=== PATIENT | male | born 1980 | race Caucasian/White ===

== ENCOUNTER 2022-05-19 18:22 | Emergency (ER) | payer SELFPAY ==
[~2022-05-19] VITALS: Ht 180.3 cm; Wt 186.4 kg
[2022-05-19 18:43] LABS: BASOPHILS # (AUTO) 0.1 X10'3 (0-0.2); BASOPHILS % (AUTO) 0.9 % (0-1); EOSINOPHILS # (AUTO) 0.6 X10'3 (0-0.9); EOSINOPHILS % (AUTO) 3.8 % (0-6); HEMATOCRIT 48.7 % (42.0-52.0); HEMOGLOBIN 15.9 g/dl (14.0-17.9); LYMPHOCYTES # (AUTO) 2.6 X10'3 (1.1-4.8); LYMPHOCYTES % (AUTO) 16.7 % (21-51); MEAN CORPUSCULAR HEMOGLOBIN 30.6 PG (27.0-31.0); MEAN CORPUSCULAR HGB CONC 32.7 g/dL (33.0-36.5); MEAN CORPUSCULAR VOLUME 93.7 FL (78-98); MEAN PLATELET VOLUME 8.3 FL (7.4-10.4); MONOCYTES % (AUTO) 6.2 % (2-12); NEUTROPHILS # (AUTO) 11.3 X10'3 (1.8-7.7); NEUTROPHILS % (AUTO) 72.4 % (42-75); PLATELET COUNT 283 X10'3 (140-440); RED BLOOD COUNT 5.19 X10'6 (4.70-6.10); RED CELL DISTRIBUTION WIDTH 13.9 % (11.5-14.5); WHITE BLOOD COUNT 15.6 X10'3 (4.5-11.0)
[2022-05-19 18:53] LABS: ALANINE AMINOTRANSFERASE 60 U/L (12-78); ALBUMIN 3.9 G/DL (3.4-5.0); ALKALINE PHOSPHATASE 88 IU/L (46-116); ANION GAP 7 (8-16); ASPARTATE AMINO TRANSFERASE 117 U/L (10-37); BILIRUBIN,TOTAL 0.4 MG/DL (0.1-1.0); BLOOD UREA NITROGEN 11 MG/DL (7-18); BUN/CREATININE RATIO 10.6 (5.4-32.0); CALCIUM 8.8 MG/DL (8.5-10.1); CHLORIDE 101 MMOL/L (99-107); CREATININE 1.04 MG/DL (0.60-1.10); GLUCOSE 155 MG/DL (70-104); SODIUM 135 MMOL/L (135-145); TOTAL CARBON DIOXIDE 27.1 MMOL/L (24-32); eGFR 78 ML/MIN
[2022-05-19 19:00] LABS: MAGNESIUM 2.1 MG/DL (1.5-2.4)
[2022-05-19 20:25] LABS: CLARITY,URINE CLEAR (Clear); COLOR,URINE YELLOW (Yellow); GLUCOSE, URINE NEGATIVE (Neg); KETONES,URINE NEGATIVE (Neg); LEUKOCYTE ESTERASE ,URINE NEGATIVE (Neg); NITRITES, URINE NEGATIVE (Neg); OCCULT BLOOD,URINE TRACE-INTACT (Neg); PROTEIN,URINE NEGATIVE (Neg); UROBILINOGEN,URINE 0.2 E.U/dL (0.2-1.0)
[2022-05-19 20:26] LABS: UA COLLECTION TYPE CLN CATCH MIDSTREAM
[2022-05-19 20:42] LABS: BACTERIA,URINE NONE SEEN /HPF (Neg); RBC,URINE 0-2 /HPF (0-2); SQUAMOUS EPITHELIAL CELL,UR FEW /LPF (FEW); WBC,URINE NONE SEEN /HPF (0-4)
[2022-05-19 20:43] LABS: MUCUS STRANDS NONE SEEN /LPF (Neg)
[2022-05-19] MEDS ORDERED: normal saline 1000ML IV soln IVB ONE (22:55)
[2022-05-19] MEDS ORDERED: ibuprofen tablet 400 MG TABLET PO ONE (23:00)
--- NOTE | 2022-05-19 23:21 | NUR ---
Pt stated his last ETOH drink was approx 1600 in the afternoon. He states he drank approx. 3 oz of vodka. Pt denies tremors, diaphoresis, N/V, hallucinations.
[2022-05-20 00:13] VITALS: BP 120/78
== END 2022-05-20 00:15 | disposition home or self-care (01) ==
LOC: ER 18:25
DX: F10.920 Alcohol use, unspecified with intoxication, uncomplicated (principal); G89.29 Other chronic pain; M54.9 Dorsalgia, unspecified; E03.9 Hypothyroidism, unspecified
CPT/HCPCS: 36415; 71045; 80053; 81001; 83735; 83880; 84484; 85025; 93005; 96360; 99285; J7030

== ENCOUNTER 2023-04-30 08:17 | Inpatient (IN) | payer BC, MEDICAID ==
[~2023-04-30] VITALS: Ht 180.3 cm; Wt 172.1 kg
[2023-04-30] MEDS ORDERED: Potassium Cl inj 20 MEQ, magnesium sulf injection 2 GM, folic acid inj. 1 MG, thiamine ... IV ONE ×6 (08:55)
[2023-04-30] MEDS ORDERED: normal saline 1000ML IV soln IVB ONE ×2 (08:55→11:20)
[2023-04-30] MEDS ORDERED: pantoprazole 40 MG vial IV ONE (08:55)
[2023-04-30] MEDS ORDERED: ondansetron/PF 4mg/2ml inj IV ONE (08:55)
[2023-04-30 09:05] LABS: BASOPHILS # (AUTO) 0.2 X10'3 (0-0.2); BASOPHILS % (AUTO) 1.3 % (0-1); EOSINOPHILS # (AUTO) 0.1 X10'3 (0-0.9); EOSINOPHILS % (AUTO) 0.6 % (0-6); HEMATOCRIT 49.5 % (42.0-52.0); HEMOGLOBIN 16.8 g/dl (14.0-17.9); LYMPHOCYTES # (AUTO) 3.8 X10'3 (1.1-4.8); LYMPHOCYTES % (AUTO) 31.7 % (21-51); MEAN CORPUSCULAR HEMOGLOBIN 32.6 PG (27.0-31.0); MEAN PLATELET VOLUME 8.4 FL (7.4-10.4); MONOCYTES # (AUTO) 1.1 X10'3 (0-0.9); MONOCYTES % (AUTO) 8.7 % (2-12); NEUTROPHILS % (AUTO) 57.7 % (42-75); PLATELET COUNT 339 X10'3 (140-440); RED BLOOD COUNT 5.15 X10'6 (4.70-6.10); RED CELL DISTRIBUTION WIDTH 14.3 % (11.5-14.5); WHITE BLOOD COUNT 12.1 X10'3 (4.5-11.0)
[2023-04-30 09:12] LABS: ALANINE AMINOTRANSFERASE 43 U/L (12-78); ALKALINE PHOSPHATASE 97 IU/L (46-116); ANION GAP 13 (8-16); ASPARTATE AMINO TRANSFERASE 86 U/L (10-37); BILIRUBIN,TOTAL 0.5 MG/DL (0.1-1.0); BLOOD UREA NITROGEN 8 MG/DL (7-18); BUN/CREATININE RATIO 6.2 (10.0-20.0); CALCIUM 8.5 MG/DL (8.5-10.1); CHLORIDE 102 MMOL/L (99-107); GLUCOSE 177 MG/DL (70-104); POTASSIUM 3.1 MMOL/L (3.5-5.1); SODIUM 140 MMOL/L (135-145); eCRCL 77 ML/MIN; eGFR 60 ML/MIN
[2023-04-30 09:13] LABS: LIPASE 49 U/L (16-77)
[2023-04-30 09:30] LABS: ETHANOL 382 MG/DL (<10)
[2023-04-30] MEDS ORDERED: magnesium 2GM in 50ml NS 50 ML IV ONE (09:30)
[2023-04-30] MEDS ORDERED: thiamine inj. 100 MG in normal saline 100ml IV soln 99 ML IV ONE (10:00)
[2023-04-30] MEDS ORDERED: folic acid 1mg/0.2ml inj IV ONE (10:00)
[2023-04-30] MEDS ORDERED: MVI, adult No.4 with vit. K 10 ML in dextrose 5% water 500ml 500 ML IV ONE ×2 (10:00)
[2023-04-30] MEDS ORDERED: potassium CL 10mEq/100ml bag 100 ML IV SCH (10:10)
[2023-04-30] MEDS ORDERED: potassium Cl 20 mEq SR tablet PO ONE (10:10)
[2023-04-30] MEDS: potassium CL 10mEq/100ml bag 100 ML IV SCH ×2 (10:22→11:52)
[2023-04-30] MEDS ORDERED: thiamine 100mg/ml 2ml inj. IV ONE (11:35)
[2023-04-30] MEDS ORDERED: acetaminophen 325mg tablet PO PRN (12:50)
[2023-04-30] MEDS ORDERED: magnesium hydroxide 30ml (MOM) UD suspension PO PRN (12:50)
[2023-04-30] MEDS ORDERED: magnesium 4gm in 100ml NS 100 ML IV PRN (12:50)
[2023-04-30] MEDS ORDERED: HYDROcodone/acetaminophen 5mg/325mg tablet PO PRN (12:50)
[2023-04-30] MEDS ORDERED: magnesium Cl slow-release 64mg tablet PO PRN (12:50)
[2023-04-30] MEDS ORDERED: potassium Cl 40MEQ/1/2NS 520ml 520 ML IV PRN (12:50)
[2023-04-30] MEDS ORDERED: potassium Cl 20 mEq SR tablet PO PRN (12:50)
[2023-04-30] MEDS ORDERED: morphine 2 MG/ML inj. syringe IV PRN (12:50)
[2023-04-30] MEDS ORDERED: magnesium 2GM in 50ml NS 50 ML IV PRN (12:50)
[2023-04-30] MEDS ORDERED: mag hydrox/Alum hydrox/simeth 30ml oral suspension PO PRN (12:50)
[2023-04-30] MEDS ORDERED: haloperidol lactate 5mg/ml inj IM PRN (12:55)
[2023-04-30] MEDS ORDERED: dextrose 50%-water 50ml dispensing syringe IV PRN (12:55)
[2023-04-30] MEDS: thiamine 100mg/ml 2ml inj. IV SCH ×2 (13:00→21:44)
[2023-04-30] MEDS: LORazepam 2 mg/ml vial IV PRN ×7 (13:19→22:49)
[2023-04-30] MEDS: haloperidol 5mg tablet PO PRN (17:42)
[2023-04-30] MEDS ORDERED: LEVO137T2 PO (18:21)
[2023-04-30] MEDS ORDERED: ZOLP10TA PO (18:21)
[2023-04-30] MEDS ORDERED: LISI10TA27 PO (18:21)
[2023-04-30] MEDS: heparin, porcine 5000 units/ml vial SQ SCH (20:30)
[2023-04-30 20:58] LABS: ALBUMIN 3.7 G/DL (3.4-5.0); ANION GAP 14 (8-16); BLOOD UREA NITROGEN 6 MG/DL (7-18); CALCIUM 8.1 MG/DL (8.5-10.1); CHLORIDE 98 MMOL/L (99-107); CREATININE 0.86 MG/DL (0.60-1.10); GLUCOSE 96 MG/DL (70-104); SODIUM 135 MMOL/L (135-145); TOTAL CARBON DIOXIDE 23.1 MMOL/L (24-32); eCRCL 117 ML/MIN; eGFR > 90 ML/MIN
[2023-04-30 21:01] LABS: POTASSIUM 2.8 MMOL/L (3.5-5.1)
[2023-04-30 21:30] VITALS: BP 180/111; PULSE 124; RESP 20; TEMP 98.2; O2SAT 100
[2023-04-30] MEDS: potassium Cl 20 mEq SR tablet PO PRN (21:40)
[2023-04-30] MEDS: K and/or MAG REPLACEMENT MC SCH (21:45)
[2023-05-01 00:32] VITALS: PULSE 106; O2SAT 88
[2023-05-01] MEDS: potassium Cl 20 mEq SR tablet PO PRN (01:52)
[2023-05-01] MEDS: LORazepam 2 mg/ml vial IV PRN ×10 (02:02→21:22)
[2023-05-01] MEDS: HYDROcodone/acetaminophen 10/325mg tab PO PRN ×4 (04:40→18:26)
[2023-05-01 06:00] VITALS: BP 180/103; PULSE 120; RESP 19; TEMP 98; O2SAT 92
--- NOTE | 2023-05-01 06:38 | NUR ---
Patient in room ORTH[facility] 4018. I have received report from DARYN Cuadra and had the opportunity to ask questions and assume patient care.
[2023-05-01 07:20] LABS: BASOPHILS # (AUTO) 0.1 X10'3 (0-0.2); BASOPHILS % (AUTO) 0.9 % (0-1); EOSINOPHILS # (AUTO) 0.2 X10'3 (0-0.9); EOSINOPHILS % (AUTO) 2.5 % (0-6); HEMATOCRIT 40.6 % (42.0-52.0); HEMOGLOBIN 14.1 g/dl (14.0-17.9); LYMPHOCYTES # (AUTO) 1.3 X10'3 (1.1-4.8); LYMPHOCYTES % (AUTO) 15.6 % (21-51); MEAN CORPUSCULAR HEMOGLOBIN 33.4 PG (27.0-31.0); MEAN CORPUSCULAR HGB CONC 34.8 g/dL (33.0-36.5); MEAN CORPUSCULAR VOLUME 95.9 FL (78-98); MEAN PLATELET VOLUME 8.4 FL (7.4-10.4); MONOCYTES # (AUTO) 0.6 X10'3 (0-0.9); MONOCYTES % (AUTO) 6.8 % (2-12); NEUTROPHILS # (AUTO) 6.2 X10'3 (1.8-7.7); NEUTROPHILS % (AUTO) 74.2 % (42-75); PLATELET COUNT 170 X10'3 (140-440); RED BLOOD COUNT 4.23 X10'6 (4.70-6.10); RED CELL DISTRIBUTION WIDTH 14.1 % (11.5-14.5); WHITE BLOOD COUNT 8.3 X10'3 (4.5-11.0)
[2023-05-01 07:32] LABS: HEMOGLOBIN A1C 5.3 % (4.5-6.2)
[2023-05-01 07:33] LABS: APTT 28 SECONDS (22-32); INR 1.1 INR; PROTHROMBIN TIME 11.4 SECONDS (9.0-12.0)
[2023-05-01 07:52] LABS: ALANINE AMINOTRANSFERASE 42 U/L (12-78); ALBUMIN 3.1 G/DL (3.4-5.0); ALBUMIN/GLOBULIN RATIO 0.9 (1.1-1.5); ALKALINE PHOSPHATASE 73 IU/L (46-116); ANION GAP 6 (8-16); ASPARTATE AMINO TRANSFERASE 83 U/L (10-37); BILIRUBIN,TOTAL 1.9 MG/DL (0.1-1.0); BLOOD UREA NITROGEN 5 MG/DL (7-18); BUN/CREATININE RATIO 6.8 (10.0-20.0); CALCIUM 8.1 MG/DL (8.5-10.1); CHLORIDE 103 MMOL/L (99-107); CHOL/HDL RATIO 4.4 (0.00-4.99); CHOLESTEROL 169 MG/DL (0-200); CREATININE 0.74 MG/DL (0.60-1.10); GLUCOSE 95 MG/DL (70-104); HDL CHOLESTEROL 38 MG/DL (35-60); LDL CHOLESTEROL 85 MG/DL (50-100); MAGNESIUM 1.4 MG/DL (1.5-2.4); PHOSPHORUS 2.7 MG/DL (2.3-4.5); POTASSIUM 3.5 MMOL/L (3.5-5.1); SODIUM 135 MMOL/L (135-145); THYROID STIMULATING HORMONE 4.19 ulU/ml (0.34-4.50); TOTAL CARBON DIOXIDE 25.6 MMOL/L (24-32); TOTAL PROTEIN 6.4 G/DL (6.4-8.2); TRIGLYCERIDES 281 MG/DL (20-135); eCRCL 136 ML/MIN; eGFR > 90 ML/MIN
[2023-05-01] MEDS: lisinopril 10 MG tablet PO SCH (07:56)
[2023-05-01] MEDS: levoTHYROXINE 25mcg tablet PO SCH (07:57)
[2023-05-01] MEDS: cloNIDine 0.1 mg tablet PO PRN (07:57)
[2023-05-01] MEDS: thiamine 100mg/ml 2ml inj. IV SCH ×3 (07:57→21:24)
[2023-05-01] MEDS: folic acid 1mg/0.2ml inj IV SCH (07:59)
[2023-05-01] MEDS: heparin, porcine 5000 units/ml vial SQ SCH ×2 (07:59→20:46)
[2023-05-01] MEDS: K and/or MAG REPLACEMENT MC SCH ×2 (08:00→20:00)
[2023-05-01] MEDS: ondansetron/PF 4mg/2ml inj IV PRN (08:12)
[2023-05-01] MEDS: levoTHYROXINE 112mcg tablet PO SCH (08:27)
[2023-05-01] MEDS ORDERED: LORazepam 2 mg/ml vial IV PRN ×2 (08:55→11:00)
[2023-05-01 10:00] VITALS: BP 148/83; PULSE 113; RESP 14; TEMP 97.6; O2SAT 93
[2023-05-01] MEDS: haloperidol 5mg tablet PO PRN (12:52)
--- NOTE | 2023-05-01 13:08 | NUR ---
patient has not stopped shaking since I've been here at 0600. Doctor Rusu upped the mg for ativan hoping that would work and he is still shaking and painful. He has been given [place] for pain and Ativan hourly. I just gave him Haldol tablet to see if this will help in combination with ativan.
[2023-05-01] MEDS: morphine 2 MG/ML inj. syringe IV PRN (14:44)
--- NOTE | 2023-05-01 16:30 | NUR ---
Problems reprioritized. Patient report given, questions answered & plan of care reviewed with TEJINDER Sepulveda. Addendum: 05/01/23 at 1949 by Radha Ferrera RN wrong time for given report will make note of correct time
--- NOTE | 2023-05-01 17:00 | NUR ---
patient is shaking in right arm and hand and painful. Patiend has needed pain medications more often then allowed to be given and ativan has been given q hourly and the shaking has not stopped. I took a lunch break and had received an admit and was not able to get it on the hour aditi for ativan a couple of times today. Regardless, patient has had copious amounts of ativan and is still shaking.
[2023-05-01 18:00] VITALS: BP 170/100; PULSE 105; RESP 20; TEMP 97.7; O2SAT 97
--- NOTE | 2023-05-01 18:30 | NUR ---
Problems reprioritized. Patient report given, questions answered & plan of care reviewed with TEJINDER Sepulveda.
[2023-05-01] MEDS ORDERED: zolpidem 5mg tablet PO SCH (21:00)
[2023-05-01 22:00] VITALS: BP 163/92; PULSE 95; RESP 22; TEMP 98.3; O2SAT 93
[2023-05-01] MEDS ORDERED: chlordiazePOXIDE 25mg capsule PO PRN (23:45)
[2023-05-02] MEDS: HYDROcodone/acetaminophen 10/325mg tab PO PRN ×3 (00:09→10:10)
[2023-05-02] MEDS: LORazepam 2 mg/ml vial IV PRN (01:07)
[2023-05-02] MEDS: morphine 2 MG/ML inj. syringe IV PRN (01:13)
[2023-05-02] MEDS: cloNIDine 0.1 mg tablet PO PRN (05:42)
[2023-05-02 06:00] VITALS: BP 178/103; PULSE 108; RESP 22; TEMP 97.8; O2SAT 97
--- NOTE | 2023-05-02 06:27 | NUR ---
Report to Radha STEARNS
--- NOTE | 2023-05-02 06:44 | NUR ---
Patient in room ORTHO 4018. I have received report from TEJINDER Sepulveda and had the opportunity to ask questions and assume patient care.
[2023-05-02 07:18] LABS: BASOPHILS % (AUTO) 0.7 % (0-1); EOSINOPHILS # (AUTO) 0.6 X10'3 (0-0.9); EOSINOPHILS % (AUTO) 9.1 % (0-6); HEMATOCRIT 40.5 % (42.0-52.0); HEMOGLOBIN 13.7 g/dl (14.0-17.9); LYMPHOCYTES # (AUTO) 1.1 X10'3 (1.1-4.8); LYMPHOCYTES % (AUTO) 17.6 % (21-51); MEAN CORPUSCULAR HEMOGLOBIN 32.9 PG (27.0-31.0); MEAN CORPUSCULAR HGB CONC 33.8 g/dL (33.0-36.5); MEAN CORPUSCULAR VOLUME 97.4 FL (78-98); MEAN PLATELET VOLUME 9.2 FL (7.4-10.4); MONOCYTES # (AUTO) 0.6 X10'3 (0-0.9); MONOCYTES % (AUTO) 9.2 % (2-12); NEUTROPHILS # (AUTO) 3.9 X10'3 (1.8-7.7); NEUTROPHILS % (AUTO) 63.4 % (42-75); PLATELET COUNT 127 X10'3 (140-440); RED BLOOD COUNT 4.16 X10'6 (4.70-6.10); RED CELL DISTRIBUTION WIDTH 14.2 % (11.5-14.5); WHITE BLOOD COUNT 6.1 X10'3 (4.5-11.0)
[2023-05-02] MEDS: lisinopril 10 MG tablet PO SCH (07:21)
[2023-05-02] MEDS: thiamine 100mg/ml 2ml inj. IV SCH (07:22)
[2023-05-02] MEDS: levoTHYROXINE 112mcg tablet PO SCH (07:22)
[2023-05-02] MEDS: folic acid 1mg/0.2ml inj IV SCH (07:22)
[2023-05-02] MEDS: ondansetron/PF 4mg/2ml inj IV PRN (07:22)
[2023-05-02] MEDS: levoTHYROXINE 25mcg tablet PO SCH (07:23)
[2023-05-02 07:29] LABS: APTT 30 SECONDS (22-32); INR 1.1 INR; PROTHROMBIN TIME 11.4 SECONDS (9.0-12.0)
[2023-05-02] MEDS: heparin, porcine 5000 units/ml vial SQ SCH (07:35)
[2023-05-02 07:47] LABS: ALANINE AMINOTRANSFERASE 41 U/L (12-78); ALBUMIN 3.1 G/DL (3.4-5.0); ALBUMIN/GLOBULIN RATIO 0.9 (1.1-1.5); ALKALINE PHOSPHATASE 80 IU/L (46-116); ANION GAP 7 (8-16); ASPARTATE AMINO TRANSFERASE 73 U/L (10-37); BILIRUBIN,TOTAL 2.2 MG/DL (0.1-1.0); BLOOD UREA NITROGEN 5 MG/DL (7-18); BUN/CREATININE RATIO 5.9 (10.0-20.0); CALCIUM 8.4 MG/DL (8.5-10.1); CHLORIDE 98 MMOL/L (99-107); CREATININE 0.85 MG/DL (0.60-1.10); GLUCOSE 91 MG/DL (70-104); MAGNESIUM 1.5 MG/DL (1.5-2.4); PHOSPHORUS 2.9 MG/DL (2.3-4.5); POTASSIUM 3.5 MMOL/L (3.5-5.1); SODIUM 131 MMOL/L (135-145); TOTAL CARBON DIOXIDE 25.9 MMOL/L (24-32); TOTAL PROTEIN 6.4 G/DL (6.4-8.2); eCRCL 118 ML/MIN; eGFR > 90 ML/MIN
[2023-05-02 10:00] VITALS: BP 186/117; PULSE 109; RESP 18; TEMP 98.7; O2SAT 96
[2023-05-02] MEDS ORDERED: LORA-269 PO (11:19)
--- NOTE | 2023-05-02 12:20 | NUR ---
pt given discharge packet and was able to ask questions upon discharge. IV was discontinued with cannula intact. Pt was escorted to lobby in a wheelchair with all of his belongings. Pt was stable and in no distress and left in a taxi to his home address in [place].
[2023-05-02] MEDS ORDERED: LORazepam 1 MG tablet PO PRN (12:55)
[2023-05-02] MEDS ORDERED: LORazepam 2 mg/ml vial IV PRN (12:55)
[2023-05-04] MEDS ORDERED: thiamine 100mg tablet PO SCH (08:00)
[2023-05-04] MEDS ORDERED: LORazepam 1 MG tablet PO PRN (12:55)
[2023-05-04] MEDS ORDERED: LORazepam 2 mg/ml vial IV PRN (12:55)
[2023-05-05] MEDS ORDERED: folic acid 1mg tablet PO SCH (08:00)
== END 2023-05-02 12:47 | disposition home or self-care (01) | DRG 425 ==
LOC: ER 08:19 → ED HOLD 12:54 → ORTHO 4S 21:10
PROVIDERS: ADMIT Internal Medicine; ATTEND Internal Medicine
DX: E87.6 Hypokalemia (principal); Z68.43 Body mass index [BMI] 50.0-59.9, adult; F10.139 Alcohol abuse with withdrawal, unspecified; E03.9 Hypothyroidism, unspecified; I10 Essential (primary) hypertension; G89.29 Other chronic pain; E66.01 Morbid (severe) obesity due to excess calories; M54.9 Dorsalgia, unspecified; R00.0 Tachycardia, unspecified; F19.10 Other psychoactive substance abuse, uncomplicated; Z90.49 Acquired absence of other specified parts of digestive tract
CPT/HCPCS: 36415; 80048; 80053; 80061; 80320; 82140; 82948; 83036; 83690; 83735; 84100; 84443; 85025; 85610; 85730; 87081; 99285; A4615; C9113; G0378; J1644; J2060; J2270; J2405; J3411; J3475; J3480; J3490; J7030; J7060